=== PATIENT | female | born 1945 | race Hispanic/Latino ===

== ENCOUNTER 2018-12-12 05:07 | Inpatient (IN) | payer MEDICARE, OTHER ==
[2018-12-12 13:57] LABS: Basophils % (Auto) 0.4 % (0.0-1.8); Eosinophils % (Auto) 0.1 % (0.0-4.3); Hematocrit 44.5 % (30.3-42.9); Hemoglobin 14.9 gm/dl (10.1-14.3); Lymphocytes # (Auto) 1.2 K/mm3 (1.2-5.4); Lymphocytes % (Auto) 11.2 % (13.4-35.0); Mean Corpuscular HGB Conc 34 % (30-34); Mean Corpuscular Volume 93 fl (79-97); Monocytes # (Auto) 0.9 K/mm3 (0.0-0.8); Monocytes % (Auto) 8.4 % (0.0-7.3); Platelet Count 210 K/mm3 (140-440); Red Blood Count 4.79 M/mm3 (3.65-5.03); Red Cell Distribution Width 13.7 % (13.2-15.2)
[2018-12-12 14:24] LABS: Alanine Aminotransferase 12 units/L (7-56); Albumin 3.8 g/dL (3.9-5); BUN/Creatinine Ratio 10; Blood Urea Nitrogen 6 mg/dL (7-17); Calcium 9.1 mg/dL (8.4-10.2); Hemolysis Index 10
[2018-12-12] MEDS ORDERED: K-DUR PO ONE (16:11)
[2018-12-12] MEDS ORDERED: TYLENOL PO PRN (21:05)
[2018-12-12] MEDS ORDERED: NORCO 10/325 PO ONE (22:00)
[2018-12-12] MEDS ORDERED: XANAX PO SCH (22:00)
[2018-12-12] MEDS: PRAVACHOL PO SCH (22:38)
[2018-12-12] MEDS: ARICEPT PO SCH (22:38)
[2018-12-12] MEDS: ZANAFLEX PO SCH (22:39)
[2018-12-12] MEDS: TOPAMAX PO SCH (22:39)
--- NOTE | 2018-12-13 09:12 | History and Physical Report ---
GP History & Physical - History of Present Illness Date of admission: 12/12/18 Date of Examination: 12/13/18 Reason for Admission: Danger to self, Failure of Outpatient Treatment Chief Complaint: I tried to kill myself History of Present Illness: The patient is a 73yo disabled retired female with history of MDD. She was transferred from [facility] with history of suicide attempt by overdose of Xanax and Lorcet. Per medical record, her found her unresponsive and called EMS. In my interview with the patient this morning, she reports that she has been feeling more depressed over the last 2 to 3 months. She suddenly felt suicidal and intentionally overdosed on a bunch of her medications. She relates her depressed mood to being stressed over "little things" including not being the one taking care of her aged mother who lives with patient's daughter. She reports low self esteem, feeling guilty, decrease sleep and decreased appetite. She also experiences increased anxiety and panic attacks. She denies hallucinations, paranoia and no homicidal thoughts. Legal Status: Voluntary Patient Problems: Current Active Problems Anxiety disorder, unspecified (Acute) MDD (major depressive disorder), recurrent severe, without psychosis (Acute) Reaction to Hospitalization: Accepting Substance History - Substance History Drug Use: none Tobacco Type: Cigarettes (She quit smoking 2 years ago) Alcohol Use: No Past psychiatric history - Past Medical History Past Medical History: GERD, hypertension, hyperlipidemia, other (Migraine, Gout, Early dementia) - past Psychiatric treatment and history Psych: Anxiety, Depression psychiatric treatment history: Patient reports that she has been on Xanax for over 10 years prescribed by her PCP. She denies abusing the Xanax. She received inpatient psych treatment many years ago. No history of suicide attempt. No established outpatient care at present time. - Social History Social history: (lives with in [facility], completed Grade 10 education, disabled, retired, no childhood abuse, no legal problems. has a Frank. ) Review of Systems All systems: negative Psychiatric: anxiety, insomnia, change in appetite, suicidal ideation, depression Results - Results Labs/Vitals: Laboratory Last Values WBC 10.7 K/mm3 (4.5-11.0) 12/12/18 13:38 RBC 4.79 M/mm3 (3.65-5.03) 12/12/18 13:38 Hgb 14.9 gm/dl (10.1-14.3) H 12/12/18 13:38 Hct 44.5 % (30.3-42.9) H 12/12/18 13:38 MCV 93 fl (79-97) 12/12/18 13:38 MCH 31 pg (28-32) 12/12/18 13:38 MCHC 34 % (30-34) 12/12/18 13:38 RDW 13.7 % (13.2-15.2) 12/12/18 13:38 Plt Count 210 K/mm3 (140-440) 12/12/18 13:38 Lymph % (Auto) 11.2 % (13.4-35.0) L 12/12/18 13:38 [place] % (Auto) 8.4 % (0.0-7.3) H 12/12/18 13:38 Eos % (Auto) 0.1 % (0.0-4.3) 12/12/18 13:38 Baso % (Auto) 0.4 % (0.0-1.8) 12/12/18 13:38 Lymph # 1.2 K/mm3 (1.2-5.4) 12/12/18 13:38 [place] # 0.9 K/mm3 (0.0-0.8) H 12/12/18 13:38 Eos # 0.0 K/mm3 (0.0-0.4) 12/12/18 13:38 Baso # 0.0 K/mm3 (0.0-0.1) 12/12/18 13:38 Seg Neutrophils % 79.9 % (40.0-70.0) H 12/12/18 13:38 Seg Neutrophils # 8.5 K/mm3 (1.8-7.7) H 12/12/18 13:38 Sodium 137 mmol/L (137-145) 12/12/18 13:38 Potassium 2.9 mmol/L (3.6-5.0) L* 12/12/18 13:38 Chloride 96.8 mmol/L (98-107) L 12/12/18 13:38 Carbon Dioxide 27 mmol/L (22-30) 12/12/18 13:38 16 mmol/L 12/12/18 13:38 BUN 6 mg/dL (7-17) L 12/12/18 13:38 0.6 mg/dL (0.7-1.2) L 12/12/18 13:38 Estimated GFR > 60 ml/min 12/12/18 13:38 10 % 12/12/18 13:38 Glucose 139 mg/dL (65-100) H 12/12/18 13:38 POC Glucose 106 (70-105) H 12/13/18 07:52 Calcium 9.1 mg/dL (8.4-10.2) 12/12/18 13:38 0.50 mg/dL (0.1-1.2) 12/12/18 13:38 AST 19 units/L (5-40) 12/12/18 13:38 ALT 12 units/L (7-56) 12/12/18 13:38 63 units/L (35-129) 12/12/18 13:38 7.0 g/dL (6.3-8.2) 12/12/18 13:38 3.8 g/dL (3.9-5) L 12/12/18 13:38 1.2 % 12/12/18 13:38 Last Vital Signs Temp 98.6 F 12/12/18 19:50 Pulse 82 12/12/18 19:50 Resp 18 12/12/18 19:50 BP Pulse Ox 96 12/12/18 19:50 Physical Examination - Constitutional Vitals: Vital Signs Temp Pulse Resp BP Pulse Ox 98.6 F 82 18 96 12/12/18 19:50 12/12/18 19:50 12/12/18 19:50 12/12/18 19:50 Temperature -Last 24 Hours Temperature 98.6 F Temperature 98.2 F General appearance: Present: no acute distress - EENT Eyes: Present: PERRL, EOM intact ENT: hearing intact, clear oral mucosa - Neck Neck: Present: supple, normal ROM - Respiratory Respiratory effort: normal Mental Status Exam - Vital signs Last Vital Signs Temp 98.6 F 12/12/18 19:50 Pulse 82 12/12/18 19:50 Resp 18 12/12/18 19:50 BP Pulse Ox 96 12/12/18 19:50 - Exam Orientation: time, place, person Affect: depressed, anxious Mood: congruent with affect Thought content: other (Suicidal) Thought Process: Intact Perceptions: none Speech: normal rate and pattern Concentration: focused Motor activity: lethargic Level of consciousness: alert Memory: Intact Sleep Symptoms: Difficulty Falling Asleep, Health Associate Awakening Appetite: decreased Interaction: cooperative Assessment and Plan - Psychiatric problem (1) MDD (major depressive disorder), recurrent severe, without psychosis Current Visit: Yes Status: Acute plan to address problem: PLAN: Patient will be admitted for inpatient psychiatric evaluation, medication adjustment and close monitoring The patient's behavior, mood, sleep and appetite will be closely monitored. Patient will be enrolled in individual and group therapeutic sessions and encouraged to attend. Patient will be provided with a safe and structured environment. Patient's physical health needs will be addressed by the Hospitalist. Social Assessment will be completed and the Bulb Grower will work with patient and family to ensure a suitable and safe disposition Medication adjustment will be made as clinically indicated Will discontinue Xanax, start Clonazepam 0.5mg bid and taper Clonazepam off over the next week Start Citalopram 10mg qd for depression Start Mirtazapine 15mg qhs for depression, appetite and insomnia The patient agreed on the treatment plan, understood the risk, benefit, alternative treatment, potential consequence of no treatment, and gave informed consent. (2) Anxiety disorder, unspecified Current Visit: Yes Status: Acute Physician Certification - Certification Statement Physician Certification Statement: This is an acknowledgement statement that MYNOR NOWAK is a 73 year old F who requires inpatient psychiatric admission for treatment which could reasonably be expected to improve the patient's condition for Depression and Anxiety Estimated period of time patient will need to remain in the hospital: 7 days Plan for post-hospital care: Out-patient care
[2018-12-13] MEDS: NAMENDA PO SCH (09:33)
[2018-12-13] MEDS: ZYLOPRIM PO SCH (09:33)
[2018-12-13] MEDS: PROTONIX PO SCH (09:34)
[2018-12-13] MEDS: LASIX PO SCH (09:34)
[2018-12-13] MEDS: ZANAFLEX PO SCH ×2 (09:34→22:45)
[2018-12-13] MEDS: TOPAMAX PO SCH ×2 (09:35→22:45)
[2018-12-13] MEDS ORDERED: NAMENDA PO SCH (10:00)
[2018-12-13] MEDS: celeXA PO SCH (10:35)
[2018-12-13] MEDS: K-DUR PO SCH (11:57)
[2018-12-13 14:01] LABS: BUN/Creatinine Ratio 20; Blood Urea Nitrogen 14 mg/dL (7-17); Calcium 9.8 mg/dL (8.4-10.2); Hemolysis Index 4
--- NOTE | 2018-12-13 14:14 | Consultation ---
History of Present Illness - Reason for Consult Consult date: 12/13/18 medical management/hypokalemia Requesting physician: LAURIE SIMMS - History of Present Illness Patient is admitted to psych unit for the management of major depression. Patient was transferred from [facility] after she was treated for drug overdose with Xanax. Patient medical history significant for major depression, anxiety disorder, back and knee pain. Patient said she was not eating and drinking well the last 2 days and she started to eat. Patient didn't have any chest pain, shortness of breath or leg swelling. Patient has been on Lasix and he may be the reason for her hypokalemia. Patient didn't have any suicidal ideation. REVIEW OF SYSTEMS: GENERAL: no weight change, no fatigue, no fever HEAD: no head ache EYES: no blurry vision, no acute visual loss EARS: no hearing loss, no discharge, no earache NOSE: no stuffiness, no sneezing, no discharge MOUTH, THROAT AND NECK: no bleeding gums, no sore throat, no swollen neck CARDIAC: no palpitations, no dyspnea on exertion, no orthopnea, no PND, no edema, no chest pain RESPIRATORY: no shortness of breath, no wheeze, no cough, no sputum, no hemoptysis, no asthma GI: no nausea, no vomiting, no dysphagia, no diarrhea, no constipation, no abdominal pain URINARY: no change in frequency, no urgency, no polyuria, no hematuria, no incontinence MUSCULOSKELETAL: no muscle weakness, no pain, no joint stiffness NEUROLOGIC: no loss of sensation/numbness, no tingling, no tremors, no weakness/paralysis HEMATOLOGIC: no anemia, no easy bruising SKIN: no rashes ENDOCRINE: no heat/cold intolerance, no polyuria, no polydipsia, no thyroid problems PSYCHIATRIC: no suicidal ideations Past History Past Medical History: GERD, hypertension, hyperlipidemia, other (Migraine, Gout, Early dementia) Past Surgical History: hysterectomy, Other (back surgery, knee surgery) Social history: (lives with in [facility], completed Grade 10 education, disabled, retired, no childhood abuse, no legal problems. has a Frank. ). denies: smoking, alcohol abuse, prescription drug abuse, IV drug u se Family history: diabetes (mother) Medications and Allergies Allergies Allergy/AdvReac Type Severity Reaction Status Date / Time No Known Allergies Allergy Unverified 12/12/18 10:25 Home Medications Medication Instructions Recorded Confirmed Last Taken Type ALPRAZolam [Xanax TAB] 0.5 mg PO Q12HR 12/12/18 12/12/18 Unknown History Acitretin 17.5 mg PO QDAY 12/12/18 12/12/18 Unknown History Allopurinol [Zyloprim] 100 mg PO DAILY 12/12/18 12/12/18 Unknown History Calcipotriene/Betamethasone 0.005 - 0.064 applicatio TP DAILY 12/12/18 12/12/18 Unknown History [Calcipotriene-Betameth Dp Oint] Diclofenac 1% [Diclofenac 1% 1 applic TP Q12HR PRN 12/12/18 12/12/18 Unknown H istory topical gel] Evista 60 mg PO DAILY 12/12/18 12/12/18 Unknown History Furosemide [Lasix TAB] 20 mg PO DAILY 12/12/18 12/12/18 Unknown History HYDROcodone/APAP 10-325 [[place] 1 each PO Q8HR PRN 12/12/18 12/12/18 Unknown History 10/325] Memantine HCl/Donepezil HCl 7 - 10 mg PO DAILY 12/12/18 12/12/18 Unknown History Mesalamine [Apriso] 1.5 g PO QDAY 12/12/18 12/12/18 Unknown History Pantoprazole [Protonix] 40 mg PO QDAY 12/12/18 12/12/18 Unknown History Rizatriptan Benzoate [Maxalt] 10 mg PO PRN PRN MDD 30 mg 12/12/18 12/12/18 Unknown History Simvastatin 20 mg PO HS 12/12/18 12/12/18 Unknown History Topiramate ER 200 mg PO DAILY 12/12/18 12/13/18 Unknown History tiZANidine [Zanaflex 4mg TAB] 4 mg PO Q12HR 12/12/18 12/12/18 Unknown History traZODone [Desyrel] 100 mg PO HS 12/12/18 12/12/18 Unknown History Triazolam [Halcion] 0.25 mg PO HS 12/13/18 12/13/18 Unknown History Vortioxetine Hydrobromide 5 mg PO DAILY 12/13/18 12/13/18 Unknown History [Trintellix] Active Meds: Active Medications Allopurinol (Zyloprim) 100 mg PO QDAY [facility] Last Admin: 12/13/18 09:33 Dose: 100 mg Documented by: Citalopram Hydrobromide (Celexa) 10 mg PO QDAY [facility] Last Admin: 12/13/18 10:35 Dose: 10 mg Documented by: Clonazepam (Klonopin) 0.5 mg PO BID [facility] Last Admin: 12/13/18 10:35 Dose: 0.5 mg Documented by: Donepezil HCl (Aricept) 10 mg PO QHS [facility] Last Admin: 12/12/18 22:38 Dose: 10 mg Documented by: Furosemide (Lasix) 20 mg PO QDAY [facility] Last Admin: 12/13/18 09:34 Dose: 20 mg Documented by: Memantine (Namenda) 5 mg PO QDAY [facility] Last Admin: 12/13/18 09:33 Dose: 5 mg Documented by: Mirtazapine (Remeron) 15 mg PO QHS [facility] Pantoprazole Sodium (Protonix) 40 mg PO QDAY [facility] Last Admin: 12/13/18 09:34 Dose: 40 mg Documented by: Potassium Chloride (K-Dur) 20 meq PO QDAY [facility] Last Admin: 12/13/18 11:57 Dose: 20 meq Documented by: Pravastatin Sodium (Pravachol) 20 mg PO QHS [facility] Last Admin: 12/12/18 22:38 Dose: 20 mg Documented by: Tizanidine HCl (Zanaflex) 4 mg PO BID [facility] Last Admin: 12/13/18 09:34 Dose: 4 mg Documented by: Topiramate (Topamax) 100 mg PO Q12HR [facility] Last Admin: 12/13/18 09:35 Dose: 100 mg Documented by: Exam - Physical Exam Narrative exam: Not in cardiopulmonary distress. The patient appeared well nourished and normally developed. Vital signs as documented. Head exam is unremarkable. No scleral icterus . Neck is without jugular venous distension, thyromegaly, or carotid bruits. Lungs are clear to auscultation. Cardiac exam reveals regular rate and Rhythm. First and second heart sounds normal. No murmurs, rubs or gallops. Abdominal exam reveals normal bowel sounds, no masses, no organomegaly and no aortic enlargement. Extremities are nonedematous and both femoral and pedal pulses are normal. PLAY LEADER: Alert and oriented 3. No focal weakness. - Constitutional Vitals: Temp Pulse Resp BP Pulse Ox 97.6 F 77 18 120/60 99 12/13/18 09:12 12/13/18 09:12 12/12/18 19:50 12/13/18 09:12 12/13/18 09:12 Results - Labs CBC & Chem 7: 12/12/18 13:38 12/13/18 13:02 Labs: Abnormal lab results 12/12/18 12/13/18 Range/Units 13:38 07:52 Potassium 2.9 L* (3.6-5.0) mmol/L Chloride 96.8 L (98-107) mmol/L BUN 6 L (7-17) mg/dL Creatinine 0.6 L (0.7-1.2) mg/dL Glucose 139 H (65-100) mg/dL POC Glucose 106 H (70-105) Albumin 3.8 L (3.9-5) g/dL Assessment and Plan Patient admitted for major depression and anxiety - Management per psych Hypokalemia - Repleted - Likely due to Lasix and will continue daily dose of potassium with Lasix - Magnesium level is normal - Check BMP tomorrow Patient is hemodynamically stable. We will sign off, if there is any question please give us a call. Thank you for the consult.
[2018-12-13 14:44] LABS: Chol/HDL Ratio 2.49 %
[2018-12-13] MEDS: ARICEPT PO SCH (22:45)
[2018-12-13] MEDS: PRAVACHOL PO SCH (22:46)
[2018-12-13] MEDS: REMERON PO SCH (22:46)
--- NOTE | 2018-12-14 08:14 | Progress Note ---
Subjective Date of service: 12/14/18 Principal diagnosis: MDD recurrent severe w/o psychosis. Subjective Comment: The patient reports improving mood but still feels hopeless, helpless and unsafe to go home. She has sever anxiety and fears being taken off Xanax which has taken for years. Patient was put on Clonazepam with a plan to taper it slowly. Objective - Criteria for Continued Treatment Criteria for Continued Treatment: Improving Level of Functioning, Stablizing Level of Functioning, Improving Emotional/Socia - Mental Status Mental Status: Alert - Objective Observation Participation Level: Moderate Assessment and Plan - Patient Problems (1) MDD (major depressive disorder), recurrent severe, without psychosis Current Visit: Yes Status: Acute Plan to address problem: PLAN: Patient will be admitted for inpatient psychiatric evaluation, medication adjustment and close monitoring The patient's behavior, mood, sleep and appetite will be closely monitored. Patient will be enrolled in individual and group therapeutic sessions and encouraged to attend. Patient will be provided with a safe and structured environment. Patient's physical health needs will be addressed by the Hospitalist. Social Assessment will be completed and the Ct Manager will work with patient and family to ensure a suitable and safe disposition Medication adjustment will be made as clinically indicated Will continue Clonazepam 0.5mg bid and taper Clonazepam off over the next week Continue Citalopram 10mg qd for depression Continue Mirtazapine 15mg qhs for depression, appetite and insomnia The patient agreed on the treatment plan, understood the risk, benefit, alternative treatment, potential consequence of no treatment, and gave informed consent. (2) Anxiety disorder, unspecified Current Visit: Yes Status: Acute
[2018-12-14] MEDS: PROTONIX PO SCH (09:49)
[2018-12-14] MEDS: celeXA PO SCH (09:49)
[2018-12-14] MEDS: K-DUR PO SCH (09:49)
[2018-12-14] MEDS: LASIX PO SCH (09:49)
[2018-12-14] MEDS: TOPAMAX PO SCH ×2 (10:35→21:45)
[2018-12-14] MEDS: ZANAFLEX PO SCH ×2 (10:35→21:45)
[2018-12-14] MEDS: NAMENDA PO SCH (10:35)
[2018-12-14] MEDS: ZYLOPRIM PO SCH (10:35)
[2018-12-14] MEDS: ARICEPT PO SCH (21:44)
[2018-12-14] MEDS: PRAVACHOL PO SCH (21:45)
[2018-12-14] MEDS: REMERON PO SCH (21:45)
[2018-12-15] MEDS: ZANAFLEX PO SCH ×2 (10:15→22:17)
[2018-12-15] MEDS: TOPAMAX PO SCH ×2 (10:15→22:16)
[2018-12-15] MEDS: NAMENDA PO SCH (10:15)
[2018-12-15] MEDS: ZYLOPRIM PO SCH (10:15)
[2018-12-15] MEDS: celeXA PO SCH (10:15)
[2018-12-15] MEDS: LASIX PO SCH (10:15)
[2018-12-15] MEDS: PROTONIX PO SCH (10:15)
[2018-12-15] MEDS: K-DUR PO SCH (10:15)
[2018-12-15 18:07] LABS: BUN/Creatinine Ratio 23; Blood Urea Nitrogen 18 mg/dL (7-17); Hemolysis Index 7
--- NOTE | 2018-12-15 19:11 | Progress Note ---
Subjective Date of service: 12/15/18 Principal diagnosis: MDD recurrent severe w/o psychosis. Subjective Comment: The patient reports improving mood. Her appetite and sleep are improving. She denies SI/HI/AVH/Paranoia. No medication side effects. Objective - Criteria for Continued Treatment Criteria for Continued Treatment: Improving Level of Functioning, Stablizing Level of Functioning, Improving Emotional/Socia - Mental Status Mental Status: Alert - Objective Observation Participation Level: Full Assessment and Plan - Patient Problems (1) MDD (major depressive disorder), recurrent severe, without psychosis Current Visit: Yes Status: Acute Plan to address problem: PLAN: Patient will be admitted for inpatient psychiatric evaluation, medication adjustment and close monitoring The patient's behavior, mood, sleep and appetite will be closely monitored. Patient will be enrolled in individual and group therapeutic sessions and encouraged to attend. Patient will be provided with a safe and structured environment. Patient's physical health needs will be addressed by the Hospitalist. Social Assessment will be completed and the Pipe Stripper will work with patient and family to ensure a suitable and safe disposition Medication adjustment will be made as clinically indicated Will continue Clonazepam 0.5mg bid and taper Clonazepam off over the next week Continue Citalopram 10mg qd for depression Continue Mirtazapine 15mg qhs for depression, appetite and insomnia The patient agreed on the treatment plan, understood the risk, benefit, alternative treatment, potential consequence of no treatment, and gave informed consent. (2) Anxiety disorder, unspecified Current Visit: Yes Status: Acute
[2018-12-15 20:07] VITALS: BP 147/64
[2018-12-15] MEDS: REMERON PO SCH (22:16)
[2018-12-15] MEDS: PRAVACHOL PO SCH (22:16)
[2018-12-15] MEDS: ARICEPT PO SCH (22:16)
--- NOTE | 2018-12-16 09:24 | Discharge Summary ---
Providers - Providers Date of Admission: 12/12/18 07:53 Date of discharge: 12/16/18 Attending physician: LAURIE SIMMS MD Primary care physician: LAURIE SIMMS MD Hospitalization Reason for admission: Suicide attempt by overdose of Xanax and Lorcet Condition: Good Hospital course: The patient was provided inpatient psychiatric treatment with safe and supportive environment, group therapy, individual counseling, psychiatric medication, medication adjustment, adverse effect monitor, medical evaluation, medical treatment, social service assessment, family/social support meeting, placement assessment and psycho-education. The patients mood, anxiety, thoughts, stress management skill, cognition, impulse/anger control, motivation, understanding of disease, compliance to treatment and appreciation on family/social support are improved and stabilized. At the time of discharge, the patient had no suicidal ideas, no homicidal ideas, no aggressive thoughts, no endangering behavior and no debilitating adverse effects. The patient agreed on the treatment plan, understood the risk, benefit, alternative treatment, potential consequence of no treatment, and gave informed consent. The patient was advised to be compliant with medications, not to use drugs and not to drink alcohol. The patient understands that if suicidal ideas, homicidal ideas, or any endangering thoughts arise, the patient should immediately seek for emergent assistance including but not limited to crisis hot line and emergency room. Follow up with out-patient Psychiatrist and PCP within 14 - 21 days of discharge. Disposition: -01 TO HOME OR SELFCARE Time spent for discharge: 35 mins Allergies/Adverse Reactions: Allergies No Known Allergies Allergy (Unverified 12/12/18 10:25) Vital Signs: Last Vital Signs Temp 98.4 F 12/15/18 19:48 Pulse 85 12/15/18 19:48 Resp 18 12/15/18 19:48 BP 147/64 12/15/18 19:48 Pulse Ox 97 12/15/18 19:48 Last Lab: Laboratory Last Values WBC 10.7 K/mm3 (4.5-11.0) 12/12/18 13:38 RBC 4.79 M/mm3 (3.65-5.03) 12/12/18 13:38 Hgb 14.9 gm/dl (10.1-14.3) H 12/12/18 13:38 Hct 44.5 % (30.3-42.9) H 12/12/18 13:38 MCV 93 fl (79-97) 12/12/18 13:38 MCH 31 pg (28-32) 12/12/18 13:38 MCHC 34 % (30-34) 12/12/18 13:38 RDW 13.7 % (13.2-15.2) 12/12/18 13:38 Plt Count 210 K/mm3 (140-440) 12/12/18 13:38 Lymph % (Auto) 11.2 % (13.4-35.0) L 12/12/18 13:38 [place] % (Auto) 8.4 % (0.0-7.3) H 12/12/18 13:38 Eos % (Auto) 0.1 % (0.0-4.3) 12/12/18 13:38 Baso % (Auto) 0.4 % (0.0-1.8) 12/12/18 13:38 Lymph # 1.2 K/mm3 (1.2-5.4) 12/12/18 13:38 [place] # 0.9 K/mm3 (0.0-0.8) H 12/12/18 13:38 Eos # 0.0 K/mm3 (0.0-0.4) 12/12/18 13:38 Baso # 0.0 K/mm3 (0.0-0.1) 12/12/18 13:38 Seg Neutrophils % 79.9 % (40.0-70.0) H 12/12/18 13:38 Seg Neutrophils # 8.5 K/mm3 (1.8-7.7) H 12/12/18 13:38 Sodium 141 mmol/L (137-145) 12/15/18 15:56 Potassium 5.1 mmol/L (3.6-5.0) H D 12/15/18 15:56 Chloride 101.8 mmol/L (98-107) 12/15/18 15:56 Carbon Dioxide 26 mmol/L (22-30) 12/15/18 15:56 18 mmol/L 12/15/18 15:56 BUN 18 mg/dL (7-17) H 12/15/18 15:56 0.8 mg/dL (0.7-1.2) 12/15/18 15:56 Estimated GFR > 60 ml/min 12/15/18 15:56 23 % 12/15/18 15:56 Glucose 117 mg/dL (65-100) H 12/15/18 15:56 POC Glucose 106 (70-105) H 12/13/18 07:52 5.8 % (4-6) 12/14/18 07:00 Calcium 9.0 mg/dL (8.4-10.2) 12/15/18 15:56 Magnesium 2.30 mg/dL (1.7-2.3) 12/15/18 15:56 0.50 mg/dL (0.1-1.2) 12/12/18 13:38 AST 19 units/L (5-40) 12/12/18 13:38 ALT 12 units/L (7-56) 12/12/18 13:38 63 units/L (35-129) 12/12/18 13:38 7.0 g/dL (6.3-8.2) 12/12/18 13:38 3.8 g/dL (3.9-5) L 12/12/18 13:38 1.2 % 12/12/18 13:38 Triglycerides 88 mg/dL (2-149) 12/13/18 13:02 Cholesterol 167 mg/dL (50-199) 12/13/18 13:02 89 mg/dL (50-130) 12/13/18 13:02 67 mg/dL (40-59) H 12/13/18 13:02 2.49 % 12/13/18 13:02 - Discharge Diagnoses (1) MDD (major depressive disorder), recurrent severe, without psychosis Status: Acute (2) Anxiety disorder, unspecified Status: Acute Core Measure Documentation - Palliative Care Palliative Care/ Comfort Measures: Not Applicable - Core Measures Any of the following diagnoses?: none Exam - Constitutional Vitals: Temp Pulse Resp BP Pulse Ox 98.4 F 85 18 147/64 97 12/15/18 19:48 12/15/18 19:48 12/15/18 19:48 12/15/18 19:48 12/15/18 19:48 General appearance: Present: no acute distress - EENT Eyes: Present: PERRL, EOM intact ENT: hearing intact, clear oral mucosa - Neck Neck: Present: supple, normal ROM - Respiratory Respiratory effort: normal Plan Activity: no restrictions Weight Bearing Status: Full Weight Bearing Diet: regular Follow up with: LAURIE SIMMS MD [Primary Care Provider] - 7 Days Prescriptions: Mirtazapine [Remeron 15mg TAB] 15 mg PO QHS #30 tablet Citalopram [Celexa] 20 mg PO QDAY #30 tablet Citalopram [celeXA] 20 mg PO QDAY #30 tablet clonazePAM [KlonoPIN] 0.5 mg PO BID 14 Days #14 tablet
[2018-12-16] MEDS ORDERED: celeXA PO SCH (10:00)
[2018-12-16] MEDS: NAMENDA PO SCH (10:34)
[2018-12-16] MEDS: K-DUR PO SCH (10:35)
[2018-12-16] MEDS: ZYLOPRIM PO SCH (10:35)
[2018-12-16] MEDS: ZANAFLEX PO SCH (10:35)
[2018-12-16] MEDS: PROTONIX PO SCH (10:35)
[2018-12-16] MEDS: TOPAMAX PO SCH (10:35)
[2018-12-16] MEDS: LASIX PO SCH (10:36)
== END 2018-12-16 13:45 | disposition home or self-care (01) | DRG 885 ==
LOC: 5A 07:53
PROVIDERS: ADMIT Psychiatry & Neurology Psychiatry; ATTEND Psychiatry & Neurology Psychiatry
DX: F33.2 Major depressive disorder, recurrent severe without psychotic features (principal); F41.9 Anxiety disorder, unspecified; Z87.891 Personal history of nicotine dependence; K21.9 Gastro-esophageal reflux disease without esophagitis; E87.6 Hypokalemia; I10 Essential (primary) hypertension; E78.5 Hyperlipidemia, unspecified; G43.909 Migraine, unspecified, not intractable, without status migrainosus; M10.9 Gout, unspecified; Z90.710 Acquired absence of both cervix and uterus; Z83.3 Family history of diabetes mellitus; Z79.01 Long term (current) use of anticoagulants; Z79.899 Other long term (current) drug therapy
CPT/HCPCS: 36415; 80048; 80053; 80061; 82962; 83036; 83735; 85025; G0378; A9270-GY